=== PATIENT | male | born 1945 | race Caucasian/White ===

== ENCOUNTER 2017-09-19 00:01 | Emergency (ER) | payer MEDICARE ==
[~2017-09-19] VITALS: Ht 172.7 cm; Wt 76.5 kg
[2017-09-19 02:14] LABS: BASOPHILS % 0.8 % (0.0-2.0); EOSINOPHILS % 2.8 % (0.0-5.0); HEMATOCRIT. 39.4 % (42.0-52.0); HEMOGLOBIN. 13.4 g/dL (14.0-18.0); LYMPHOCYTES % 23.7 % (20.0-50.0); MEAN CORPUSCULAR HEMOGLOBIN 31.5 pg (28.0-32.0); MEAN CORPUSCULAR VOLUME 92.5 fL (80.0-94.0); MEAN PLATELET VOLUME 7.5 fl (7.4-10.4); MONOCYTES % 11.4 % (2.0-8.0); NEUTROPHILS % 61.3 % (40.0-76.0); PLATELET 221 x1000/uL (130-400); RED BLOOD CELL COUNT 4.26 mill/uL (4.7-6.1); RED CELL DISTRIBUTION WIDTH 14.1 % (11.6-14.6)
[2017-09-19 02:15] LABS: CHLORIDE 101 mEq/L (98-107)
[2017-09-19 02:17] LABS: INR 2.3; PROTHROMBIN TIME 23.4 sec (9.4-11.6)
[2017-09-19 02:22] LABS: CARBON DIOXIDE 25 mEq/L (21-32)
[2017-09-19] MEDS ORDERED: LIDOCAINE HCL/EPINEPHRINE 0.5%-EPI 1:200,000 50 ML VIAL INFIL ONE (03:00)
[2017-09-19] MEDS ORDERED: LIDOCAINE HCL 1%/EPI 1:200,000 30 ML VIAL IJ SCH (03:15)
[2017-09-19 06:09] VITALS: BP 126/71
== END 2017-09-19 06:12 | disposition home or self-care (01) ==
LOC: ER 00:01
DX: I83.891 Varicose veins of right lower extremity with other complications (principal); I10 Essential (primary) hypertension; I48.91 Unspecified atrial fibrillation
CPT/HCPCS: 36415; 80053; 85025; 85610; 99285; J3490; J7030; 99291

== ENCOUNTER 2018-10-03 19:12 | Emergency (ER) | payer MEDICARE ==
[~2018-10-03] VITALS: Ht 172.7 cm; Wt 79.0 kg
[2018-10-03] MEDS ORDERED: SILVER NITRATE APPLICATOR STICK TOP ONE (23:00)
[2018-10-04 00:46] VITALS: BP 121/69
[2018-10-16] MEDS ORDERED: MULT-1203 PO (09:17)
[2018-10-16] MEDS ORDERED: IRBE300T18 PO (09:17)
[2018-10-16] MEDS ORDERED: SOTA80TA PO (09:17)
[2018-10-16] MEDS ORDERED: TAMS0.4C31 PO (09:17)
[2018-10-16] MEDS ORDERED: LEVO75TA7 PO (09:17)
== END 2018-10-04 06:21 | disposition home or self-care (01) ==
LOC: ER 19:12
DX: I83.93 Asymptomatic varicose veins of bilateral lower extremities (principal); I10 Essential (primary) hypertension; E03.9 Hypothyroidism, unspecified; Z98.890 Other specified postprocedural states
CPT/HCPCS: 99283

== ENCOUNTER 2018-10-16 11:01 | Day surgery (SDC) | payer MEDICARE ==
[~2018-10-16] VITALS: Ht 172.7 cm; Wt 79.8 kg
[~2018-10-16 11:01] MED LIST: IRBE300T18 PO; LEVO75TA7 PO; MULT-1203 PO; SOTA80TA PO; TAMS0.4C31 PO
[2018-10-16] MEDS ORDERED: LIDOCAINE HCL 1% 20ML VIAL (Pyxis) INJ ONE (11:41)
[2018-10-16] MEDS ORDERED: THROMBIN (BOVINE) 5000 UNITS/VIAL TOP ONE (11:41)
[2018-10-16] MEDS ORDERED: BACITRACIN 15GM TUBE TOP ONE (11:41)
[2018-10-16] MEDS ORDERED: HEPARIN SODIUM 1,000 UNIT/1ML VIAL IV ONE (11:42)
[2018-10-16] MEDS ORDERED: NORMAL SALINE 0.9% 10 ML SYR ONE (11:42)
[2018-10-16] MEDS ORDERED: BACITRACIN 50,000 UNITS/VIAL ONE (11:42)
[2018-10-16] MEDS ORDERED: BUPIVACAINE HCL/PF 0.5% (5MG/ML) 10ML ONE (11:42)
[2018-10-16 12:32] LABS: BASOPHILS % 0.7 % (0.0-2.0); HEMATOCRIT. 37.2 % (42.0-52.0); HEMOGLOBIN. 12.6 g/dL (14.0-18.0); LYMPHOCYTES % 33.4 % (20.0-50.0); MEAN CORPUSCULAR HEMOGLOBIN 31.8 pg (28.0-32.0); MEAN CORPUSCULAR VOLUME 93.5 fL (80.0-94.0); MEAN PLATELET VOLUME 7.5 fl (7.4-10.4); MONOCYTES % 12.8 % (2.0-8.0); NEUTROPHILS % 50.1 % (40.0-76.0); PLATELET 256 x1000/uL (130-400); RED BLOOD CELL COUNT 3.98 mill/uL (4.7-6.1)
[2018-10-16 12:42] LABS: INR 1.1; PARTIAL THROMBOPLASTIN TIME 29.8 sec (23.4-31.0); PROTHROMBIN TIME 10.6 sec (9.1-11.1)
[2018-10-16] MEDS ORDERED: PROPOFOL 200MG/20ML VIAL IV ONE (14:14)
[2018-10-16] MEDS ORDERED: MIDAZOLAM HCL 2 MG/2 ML VIAL ONE (14:14)
[2018-10-16] MEDS ORDERED: FENTANYL CITRATE/PF 50MCG/ML 2ML VIAL ONE (14:14)
[2018-10-16] MEDS ORDERED: DEXAMETHASONE 4MG/ML 1ML VIAL ONE (14:22)
[2018-10-16] MEDS ORDERED: ONDANSETRON HCL 4MG/2ML INJ ONE (14:27)
[2018-10-16] MEDS ORDERED: ROCURONIUM BROMIDE 10MG/ML VIAL 5ML IV ONE (14:37)
[2018-10-16] MEDS ORDERED: NEOSTIGMINE METHYLSULFATE 1MG/ML 10 ML VIAL ONE (14:47)
[2018-10-16] MEDS ORDERED: GLYCOPYRROLATE 0.2 MG/ML 2ML VIAL ONE (14:47)
[2018-10-16] MEDS ORDERED: IBUPROFEN 400MG TABLET PO NR (16:00)
[2018-10-16] MEDS ORDERED: MEPERIDINE HCL/PF 25MG/ML CPJ IV PRN (16:15)
[2018-10-16] MEDS ORDERED: LABETALOL 5MG/ML SYR 20 MG/4 ML SYRINGE IV PRN (16:15)
[2018-10-16] MEDS ORDERED: ONDANSETRON HCL 4MG/2ML INJ IV PRN (16:15)
[2018-10-16] MEDS ORDERED: HYDROMORPHONE HCL/PF 2MG/ML CPJ IV PRN (16:15)
[2018-10-16 16:31] VITALS: BP 160/73
== END 2018-10-16 17:00 | disposition home or self-care (01) ==
LOC: OR 11:01
PROVIDERS: ATTEND Surgery Vascular Surgery
DX: I83.891 Varicose veins of right lower extremity with other complications (principal); I10 Essential (primary) hypertension; N40.0 Benign prostatic hyperplasia without lower urinary tract symptoms; E03.9 Hypothyroidism, unspecified; Z79.899 Other long term (current) drug therapy; Z98.890 Other specified postprocedural states; Z79.01 Long term (current) use of anticoagulants
CPT/HCPCS: 36415; 37761; 71045; 85025; 85610; 85730; 93005; J1100; J2250; J2405; J2710; J3010; J3490; A4216; J1644; J2704

== ENCOUNTER 2019-02-25 21:43 | Inpatient (IN) | payer MEDICARE ==
[~2019-02-25] VITALS: Ht 172.7 cm; Wt 78.0 kg
[2019-02-25] MEDS ORDERED: ASPIRIN 81MG TABLET PO ONE (22:15)
[2019-02-25] MEDS ORDERED: ADENOSINE 3 MG/ML 2ML VIAL IV ONE ×2 (22:15→22:17)
[2019-02-25] MEDS ORDERED: DILTIAZEM HCL 125 MG in DEXT 5% WATER 100 ML IV ONE (22:30)
[2019-02-25] MEDS ORDERED: DILTIAZEM HCL 5MG/ML 5ML VIAL IV ONE (22:30)
[2019-02-25 22:44] LABS: BASOPHILS % 0.4 % (0.0-2.0); EOSINOPHILS % 1.8 % (0.0-5.0); HEMATOCRIT. 41.9 % (42.0-52.0); HEMOGLOBIN. 14.4 g/dL (14.0-18.0); LYMPHOCYTES % 25.5 % (20.0-50.0); MEAN CORPUSCULAR HEMOGLOBIN 31.3 pg (28.0-32.0); MEAN CORPUSCULAR VOLUME 91.1 fL (80.0-94.0); MEAN PLATELET VOLUME 8.2 fl (7.4-10.4); MONOCYTES % 11.3 % (2.0-8.0); PLATELET 246 x1000/uL (130-400); RED CELL DISTRIBUTION WIDTH 14.3 % (11.6-14.6)
[2019-02-25] MEDS ORDERED: DILTIAZEM HCL 125 MG in DEXT 5% WATER 100 ML IV SCH (22:45)
[2019-02-25 22:50] LABS: CHLORIDE 103 mEq/L (98-107)
[2019-02-26] MEDS ORDERED: ONDANSETRON HCL 4MG/2ML INJ IV PRN (06:45)
[2019-02-26] MEDS ORDERED: CLONIDINE 0.1MG TABLET PO PRN (06:45)
[2019-02-26] MEDS ORDERED: HYDROCODONE/ACETAMINOPHEN 5/325MG TABLET PO PRN (06:45)
[2019-02-26] MEDS ORDERED: DOCUSATE SODIUM 100MG CAPSULE PO PRN (06:45)
[2019-02-26] MEDS ORDERED: MAGNESIUM/ALUMINUM HYDROXIDE/SIMETHICONE 30ML UDC PO PRN (06:45)
[2019-02-26] MEDS ORDERED: ACETAMINOPHEN 325MG TABLET PO PRN (06:45)
[2019-02-26] MEDS ORDERED: DIPHENHYDRAMINE 50MG/ML VIAL IV PRN (06:45)
[2019-02-26] MEDS: ENOXAPARIN 40MG/0.4ML SYR SUBCUT SCH (12:25)
[2019-02-26] MEDS: PANTOPRAZOLE SODIUM 40 MG/VIAL IV SCH (12:25)
[2019-02-26 17:30] VITALS: BP 110/56
[2019-02-26 20:00] VITALS: BP 106/76
[2019-02-26] MEDS ORDERED: PNEUMOCOCCAL 23-VAL P-SAC VAC 0.5 ML IM ONE (20:45)
[2019-02-26] MEDS ORDERED: INFLUENZA VIRUS VACCINE(AFLURIA) 0.5ML SYR IM ONE (21:00)
[2019-02-26 22:00] VITALS: BP 130/78
[2019-02-27] VITALS (12 sets, daily range): BP systolic 109–150; BP diastolic 60–97
[2019-02-27 06:24] LABS: BASOPHILS % 0.5 % (0.0-2.0); EOSINOPHILS % 2.7 % (0.0-5.0); HEMOGLOBIN. 13.4 g/dL (14.0-18.0); LYMPHOCYTES % 31.9 % (20.0-50.0); MEAN CORPUSCULAR HEMOGLOBIN 30.7 pg (28.0-32.0); MEAN CORPUSCULAR VOLUME 91.5 fL (80.0-94.0); MEAN PLATELET VOLUME 8.2 fl (7.4-10.4); MONOCYTES % 11.1 % (2.0-8.0); NEUTROPHILS % 53.8 % (40.0-76.0); PLATELET 221 x1000/uL (130-400); RED BLOOD CELL COUNT 4.38 mill/uL (4.7-6.1); RED CELL DISTRIBUTION WIDTH 14.3 % (11.6-14.6)
[2019-02-27 06:29] LABS: CHLORIDE 103 mEq/L (98-107)
[2019-02-27 06:55] LABS: PHOSPHORUS 3.1 mg/dL (2.5-4.9)
[2019-02-27 06:56] LABS: LDL CHOLESTEROL 86 mg/dL (5-100)
[2019-02-27 06:58] LABS: HDL CHOLESTEROL 34 mg/dL (40-59)
[2019-02-27] MEDS: ENOXAPARIN 40MG/0.4ML SYR SUBCUT SCH (08:33)
[2019-02-27] MEDS: PANTOPRAZOLE SODIUM 40 MG/VIAL IV SCH (08:33)
[2019-02-27] MEDS ORDERED: APIXABAN 5 MG TABLET PO SCH (11:30)
[2019-02-27] MEDS: LEVOTHYROXINE SODIUM 75MCG TABLET PO SCH (11:46)
[2019-02-27] MEDS: SOTALOL HCL 80MG TABLET PO SCH ×2 (11:48→21:17)
[2019-02-27 12:37] LABS: T4 FREE 1.14 ng/dL (0.76-1.46)
[2019-02-27] MEDS: APIXABAN 5 MG TABLET PO SCH (21:17)
[2019-02-27] MEDS: TAMSULOSIN HCL 0.4MG SR CAPSULE PO SCH (21:17)
[2019-02-27] MEDS ORDERED: PNEUMOCOCCAL 23-VAL P-SAC VAC 0.5 ML IM ONE (23:00)
[2019-02-28] VITALS (12 sets, daily range): BP systolic 76–141; BP diastolic 56–107
[2019-02-28 06:12] LABS: BASOPHILS % 1.1 % (0.0-2.0); EOSINOPHILS % 2.2 % (0.0-5.0); HEMATOCRIT. 41.9 % (42.0-52.0); HEMOGLOBIN. 14.5 g/dL (14.0-18.0); LYMPHOCYTES % 24.1 % (20.0-50.0); MEAN CORPUSCULAR HEMOGLOBIN 31.4 pg (28.0-32.0); MEAN CORPUSCULAR VOLUME 90.7 fL (80.0-94.0); MEAN PLATELET VOLUME 8.3 fl (7.4-10.4); MONOCYTES % 10.7 % (2.0-8.0); NEUTROPHILS % 61.9 % (40.0-76.0); PLATELET 256 x1000/uL (130-400); RED BLOOD CELL COUNT 4.61 mill/uL (4.7-6.1); RED CELL DISTRIBUTION WIDTH 14.3 % (11.6-14.6)
[2019-02-28 06:28] LABS: CHLORIDE 102 mEq/L (98-107)
[2019-02-28] MEDS: FAMOTIDINE 20MG TABLET PO SCH ×2 (08:15→20:40)
[2019-02-28] MEDS: APIXABAN 5 MG TABLET PO SCH ×2 (08:15→20:40)
[2019-02-28] MEDS ORDERED: DILTIAZEM HCL 5MG/ML 5ML VIAL IV NR (08:15)
[2019-02-28] MEDS: LEVOTHYROXINE SODIUM 75MCG TABLET PO SCH (08:15)
[2019-02-28] MEDS: SOTALOL HCL 80MG TABLET PO SCH ×2 (08:58→20:42)
[2019-02-28] MEDS ORDERED: DILTIAZEM HCL 125 MG in DEXT 5% WATER 100 ML IV PRN (11:00)
[2019-02-28] MEDS: TAMSULOSIN HCL 0.4MG SR CAPSULE PO SCH (20:42)
[2019-03-01] VITALS (10 sets, daily range): BP systolic 89–153; BP diastolic 55–84
[2019-03-01 05:58] LABS: BASOPHILS % 0.5 % (0.0-2.0); HEMATOCRIT. 40.8 % (42.0-52.0); HEMOGLOBIN. 13.8 g/dL (14.0-18.0); LYMPHOCYTES % 29.5 % (20.0-50.0); MEAN CORPUSCULAR VOLUME 91.3 fL (80.0-94.0); MEAN PLATELET VOLUME 8.6 fl (7.4-10.4); MONOCYTES % 10.9 % (2.0-8.0); NEUTROPHILS % 57.1 % (40.0-76.0); PLATELET 234 x1000/uL (130-400); RED BLOOD CELL COUNT 4.47 mill/uL (4.7-6.1); RED CELL DISTRIBUTION WIDTH 14.5 % (11.6-14.6)
[2019-03-01 06:11] LABS: CHLORIDE 99 mEq/L (98-107)
[2019-03-01] MEDS ORDERED: LEVOTHYROXINE SODIUM 88MCG TABLET PO SCH (07:30)
[2019-03-01] MEDS: APIXABAN 5 MG TABLET PO SCH (08:08)
[2019-03-01] MEDS: FAMOTIDINE 20MG TABLET PO SCH (08:09)
[2019-03-01] MEDS: SOTALOL HCL 80MG TABLET PO SCH (08:09)
[2019-03-01] MEDS ORDERED: DILTIAZEM HCL 120MG CAPSULE CD 24HR PO SCH (09:15)
[2019-03-01] MEDS ORDERED: DILT120C88 PO (13:42)
== END 2019-03-01 14:45 | disposition home or self-care (01) | DRG 310 ==
LOC: ER 21:43 → 5EST 23:22 → EDBEDREQTM 23:24 → EDBEDREQSVC 23:24 → EDBEDREQ 23:24 → ENRESERV 02-26 15:31 → 5EST 02-26 18:33
PROVIDERS: ADMIT Family Medicine Adult Medicine; ATTEND Family Medicine Adult Medicine
DX: I48.91 Unspecified atrial fibrillation (principal); I47.1 Supraventricular tachycardia; I48.92 Unspecified atrial flutter; E03.9 Hypothyroidism, unspecified; I10 Essential (primary) hypertension; N40.0 Benign prostatic hyperplasia without lower urinary tract symptoms; Z79.890 Hormone replacement therapy; Z79.899 Other long term (current) drug therapy
CPT/HCPCS: 36415; 71045; 80048; 80061; 83735; 83880; 84100; 84439; 84443; 84481; 84484; 90732; 93005; 93306; 93970; 96374; 96375; 97162; 97166; 99291; C9113; J0153; J1650; J3490; J7060

== ENCOUNTER 2022-08-08 18:15 | Emergency (ER) | payer MEDICARE ==
[~2022-08-08] VITALS: Ht 172.7 cm; Wt 73.0 kg
[~2022-08-08 18:15] MED LIST changes: +DILT120C88 PO; +IRBE300T17 PO; -IRBE300T18 PO
[2022-08-08 19:19] VITALS: BP 185/75
== END 2022-08-08 21:15 | disposition left against medical advice (07) ==
LOC: ER 18:15
DX: Z53.21 Procedure and treatment not carried out due to patient leaving prior to being seen by health care provider (principal)

== ENCOUNTER 2022-09-01 16:10 | Emergency (ER) | payer MEDICARE ==
[~2022-09-01] VITALS: Ht 167.6 cm; Wt 65.0 kg
[2022-09-01 17:00] VITALS: BP_DIAS 93
[2022-09-01 17:34] LABS: CLARITY URINE CLEAR (CLEAR); COLOR URINE YELLOW (YELLOW); KETONES URINE NEGATIVE (NEGATIVE); LEUKOCYTE ESTERASE URINE NEGATIVE (NEGATIVE); NITRITE URINE NEGATIVE (NEGATIVE); OCCULT BLOOD URINE NEGATIVE (NEGATIVE); PH URINE 6.5 (4.5-8.0); PROTEIN URINE NEGATIVE (NEGATIVE)
[2022-09-01 17:38] LABS: BASOPHILS % 0.6 % (0.0-2.0); EOSINOPHILS % 1.9 % (0.0-5.0); HEMATOCRIT. 40.7 % (42.0-52.0); HEMOGLOBIN. 14.3 g/dL (14.0-18.0); LYMPHOCYTES % 24.4 % (20.0-50.0); MEAN CORPUSCULAR HEMOGLOBIN 32.1 pg (28.0-32.0); MEAN CORPUSCULAR VOLUME 91.4 fL (80.0-94.0); MEAN PLATELET VOLUME 6.9 fl (7.4-10.4); MONOCYTES % 13.1 % (2.0-8.0); PLATELET 284 x1000/uL (130-400); RED BLOOD CELL COUNT 4.45 mill/uL (4.7-6.1)
[2022-09-01 17:45] LABS: CHLORIDE 91 mEq/L (98-107)
[2022-09-01 19:09] VITALS: BP_SYST 172
[2022-09-01] MEDS ORDERED: NAPR-1176 MT (19:35)
== END 2022-09-01 19:25 | disposition home or self-care (01) ==
LOC: ER 16:30
DX: N48.29 Other inflammatory disorders of penis (principal); E11.9 Type 2 diabetes mellitus without complications; I10 Essential (primary) hypertension; Z86.39 Personal history of other endocrine, nutritional and metabolic disease
CPT/HCPCS: 36415; 74176; 76870; 80053; 81003; 85025; 93976; 99284

== ENCOUNTER 2022-09-30 23:21 | Emergency (ER) | payer MEDICARE ==
[~2022-09-30 23:21] MED LIST changes: +NAPR-1176 MT
== END 2022-10-01 00:23 | disposition left against medical advice (07) ==
LOC: ER 23:21
DX: Z53.21 Procedure and treatment not carried out due to patient leaving prior to being seen by health care provider (principal)

== ENCOUNTER 2022-12-01 23:16 | Emergency (ER) | payer MEDICARE ==
[~2022-12-01] VITALS: Ht 170.2 cm; Wt 77.0 kg
[2022-12-01 23:30] VITALS: BP 162/81
[2022-12-02 00:08] LABS: CLARITY URINE CLEAR (CLEAR); COLOR URINE YELLOW (YELLOW); KETONES URINE TRACE (NEGATIVE); LEUKOCYTE ESTERASE URINE NEGATIVE (NEGATIVE); NITRITE URINE NEGATIVE (NEGATIVE); OCCULT BLOOD URINE NEGATIVE (NEGATIVE); PROTEIN URINE NEGATIVE (NEGATIVE); SPECIFIC GRAVITY URINE 1.014 (1.005-1.030)
[2022-12-02] MEDS ORDERED: NYST15CR36 TP (02:58)
== END 2022-12-02 03:26 | disposition home or self-care (01) ==
LOC: ER 23:16
DX: L30.8 Other specified dermatitis (principal); N40.0 Benign prostatic hyperplasia without lower urinary tract symptoms
CPT/HCPCS: 81003; 99283